=== PATIENT | female | born 1990 | race Two or more races ===

== ENCOUNTER 2020-08-05 10:37 | Emergency (ER) | payer BC, OTHER ==
[~2020-08-05] VITALS: Ht 152.4 cm; Wt 70.5 kg
[2020-08-05 13:43] LABS: BASOPHILS % (AUTO) 1 % (0-1); EOSINOPHILS % (AUTO) 0 % (1-7); LYMPHOCYTES % (AUTO) 15 % (22-44); MEAN CORPUSCULAR HEMOGLOBIN 27.6 pg (27.0-34.8); MEAN CORPUSCULAR HGB CONC 33.5 g/dL (32.4-35.8); MEAN PLATELET VOLUME 8.2 fL (7.4-10.4); MONOCYTES % (AUTO) 5 % (2-9); NEUTROPHILS % (AUTO) 80 % (42-75); PLATELET COUNT 297 x10^3/uL (130-400); RED BLOOD COUNT 4.47 x10^6/uL (3.82-5.3); RED CELL DISTRIBUTION WIDTH 15.2 % (9.6-15.2)
--- NOTE | 2020-08-05 13:52 | NUR ---
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
[2020-08-05 13:53] LABS: ALBUMIN 3.7 g/dL (3.4-5.0); ANION GAP 11 mmol/L (5-15); CALCIUM 9.2 mg/dL (8.5-10.1); CHLORIDE 106 mmol/L (98-107); CREATININE 0.58 mg/dL (0.55-1.02)
--- NOTE | 2020-08-05 13:59 | NUR ---
PELVIC PAIN/PRESSURE THAT RADIATES TO LEFT FLANK. ALSO COMPLAINING OF ANAL PAIN. (+) PREG. [facility]. PT WITH STEADY GAIT TO ROOM ATTACHED TO MONITORS. VSS. LOERA.
--- NOTE | 2020-08-05 14:07 | NUR ---
PT TO US.
[2020-08-05 14:40] VITALS: BP 111/67
[2020-08-05 15:06] LABS: MICROSCOPIC AUTO
[2020-08-05] MEDS ORDERED: KETOROLAC 30 MG/1 ML ONE (15:26)
[2020-08-05] MEDS ORDERED: ACETAMINOPHEN 500 MG TABLET ONE (15:26)
[2020-08-05] MEDS ORDERED: ACETAMINOPHEN 500 MG TABLET PO ONE (15:30)
[2020-08-05] MEDS ORDERED: KETOROLAC 30 MG/1 ML IM ONE (15:30)
--- NOTE | 2020-08-05 15:37 | NUR ---
MEDICATED PER EMAR
--- NOTE | 2020-08-05 17:23 | NUR ---
Patient given discharge instructions and they have confirmed that they understand the instructions. Patient ambulatory with steady gait. NAD, all questions answered appropriately, denies additional needs at this time. No personal belongings left in room after discharge.
== END 2020-08-05 17:24 | disposition home or self-care (01) ==
LOC: ED 11:07
DX: O26.891 Other specified pregnancy related conditions, first trimester (principal); R10.2 Pelvic and perineal pain; O21.8 Other vomiting complicating pregnancy; Z3A.01 Less than 8 weeks gestation of pregnancy
CPT/HCPCS: 36415; 76801; 80048; 81001; 82040; 84702; 85025; 86901; 96372; 99284; J1885

== ENCOUNTER 2020-08-19 23:44 | Emergency (ER) | payer BC, OTHER ==
[~2020-08-19] VITALS: Ht 154.9 cm; Wt 70.4 kg
--- NOTE | 2020-08-20 00:22 | NUR ---
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
--- NOTE | 2020-08-20 00:29 | NUR ---
relief rn; pt ambulatory from triage. pt states she has been spotting x 2 weeks since she found out that she was pg. pt states she has been going through ~6 panty liners per day, denies any clots, c generalized lower abd discomfort. pt . pt changing, family at .
--- NOTE | 2020-08-20 01:13 | NUR ---
received report from HERNANDEZ Sloan
--- NOTE | 2020-08-20 01:17 | NUR ---
Report to HERNANDEZ Mojica
[2020-08-20 01:19] LABS: BASOPHILS % (AUTO) 1 % (0-1); EOSINOPHILS % (AUTO) 1 % (1-7); LYMPHOCYTES % (AUTO) 28 % (22-44); MEAN CORPUSCULAR HEMOGLOBIN 27.9 pg (27.0-34.8); MEAN CORPUSCULAR HGB CONC 33.3 g/dL (32.4-35.8); MONOCYTES % (AUTO) 9 % (2-9); NEUTROPHILS % (AUTO) 62 % (42-75); PLATELET COUNT 343 x10^3/uL (130-400); RED BLOOD COUNT 4.62 x10^6/uL (3.82-5.3); RED CELL DISTRIBUTION WIDTH 14.5 % (9.6-15.2)
[2020-08-20 01:32] LABS: ALANINE AMINOTRANSFERASE 55 U/L (12-78); ALBUMIN 3.5 g/dL (3.4-5.0); ANION GAP 3 mmol/L (5-15); CALCIUM 9.1 mg/dL (8.5-10.1); CHLORIDE 106 mmol/L (98-107); CREATININE 0.66 mg/dL (0.55-1.02)
[2020-08-20 01:50] LABS: ALKALINE PHOSPHATASE 91 U/L (45-117); BILIRUBIN,TOTAL 0.3 mg/dL (0.2-1.0); TOTAL PROTEIN 7.9 g/dL (6.4-8.2)
--- NOTE | 2020-08-20 02:06 | NUR ---
urine obtained and sent to lab.
[2020-08-20 02:28] LABS: MICROSCOPIC AUTO
--- NOTE | 2020-08-20 03:37 | NUR ---
re-evaluation done. patient discharged with instruction to follow up to [facility]. verbalized understanding.
[2020-08-20 03:38] VITALS: BP 106/65
== END 2020-08-20 03:40 | disposition home or self-care (01) ==
LOC: ED 08-20 00:14
DX: O20.0 Threatened abortion (principal); N93.8 Other specified abnormal uterine and vaginal bleeding; Z3A.01 Less than 8 weeks gestation of pregnancy
CPT/HCPCS: 36415; 76830; 80053; 81001; 84702; 85025; 99284